=== PATIENT | male | born 2000 | race Caucasian/White ===

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

== ENCOUNTER → 2023-08-27 12:06 | Outpatient (CLI) | payer MEDICAID, SELFPAY ==
--- NOTE | 2023-08-27 12:08 | CT_ITS ---
WS: [id number] CT HEAD TECHNIQUE: Noncontrast CT of the head obtained from the skullbase to the vertex. CLINICAL INFORMATION: EVALUATE SHUNT FUNCTION COMPARISON: None. DLP: 995.[address] scans at [facility] use at least one of these dose optimization techniques: automated e xposure control; mA and/or kV adjustment per patient size (includes targeted exams where dose is matc hed to clinical indication); or iterative reconstruction. FINDINGS: No prior comparisons. No evidence intracranial hemorrhage or mass effect. Large chronic RIGHT parietal craniectomy defect a t the vertex. RIGHT parietal occipital shunt catheter with tip in the anterior horn RIGHT lateral ramo tricle along the septum pellucidum. RIGHT ventricle is decompressed. Mild dilatation of the LEFT late ral ventricle. Chronic encephalomalacia with dystrophic calcifications in the RIGHT parietal lobe presumably in a r esection cavity. Increased attenuation in the resection cavity likely laminar necrosis and mineraliza tion. Recommend correlation with surgical history. No evidence of significant hydrocephalus or transependym al edema. Temporal horns are decompressed. Normal fourth ventricle. Third ventricle is decompressed. Tiny low-attenuation benign extra-axial fluid collections likely tiny subdural hygromas. No mass effe ct. Mild mucosal thickening in the ethmoid air cells and paranasal sinuses. Sphenoid sinuses are well aer ated and mastoid air cells are well aerated. Normal posterior nasopharynx. Normal posterior fossa. CT/CT head wo con* [id number] IMPRESSION: 1. Chronic RIGHT parietal craniectomy with underlying encephalomalacia and dys trophic calcifications and mineralization. Recommend correlation with prior res ection in this area. 2. RIGHT parietal shunt catheter with tip along the septum pellucidum in the R IGHT frontal horn. 3. RIGHT ventricle is decompressed. Mild dilatation of the LEFT lateral ventri dionte when compared to the RIGHT but no evidence of transependymal edema or signi ficant hydrocephalus. Temporal horns are decompressed. Third ventricle and four th ventricle are decompressed. 4. Tiny symmetric low-attenuation subdural collections likely subdural hygroma s incidental. 5. No other acute findings.
== END | disposition home or self-care (01) ==
LOC: RAD 12:05
PROVIDERS: Family Provider Family Medicine; PCP Nurse Practitioner Family; Visit Provider Internal Medicine
DX: S06.6X9D Traumatic subarachnoid hemorrhage with loss of consciousness of unspecified duration, subsequent encounter (principal); G93.89 Other specified disorders of brain; Z98.2 Presence of cerebrospinal fluid drainage device
CPT/HCPCS: 70450

== ENCOUNTER 2023-09-04 10:04 | Outpatient (CLI) | payer MEDICAID, SELFPAY ==
--- NOTE | 2023-09-04 10:09 | FL_ITS ---
WS: [id number] Exam: FL barium swallow modifd [id number] Date/Time of Exam: 09/04/2023 10:20 AM Reason For Exam: Other dysphagia Fluoroscopy time: 2min [id number] minutes # of spot films: 0 Modified barium swallow study was performed in conjunction with the speech therapy service. [place] consistency and pudding consistency barium foodstuffs were administered. Oral pharyngeal phase of swallowing was grossly normal. No aspiration or penetration was observed on this limited exam. FL/FL barium swallow modifd [id number] IMPRESSION: 1. No aspiration or penetration identified. Limited exam. A separate report and recommendations will follow from the speech therapy servi ce.
== END 2023-09-04 10:05 | disposition home or self-care (01) ==
LOC: RAD 10:04
PROVIDERS: Family Provider Family Medicine; PCP Nurse Practitioner Family; Visit Provider Internal Medicine
DX: R13.12 Dysphagia, oropharyngeal phase (principal)
CPT/HCPCS: 74230; 92611

== ENCOUNTER 2023-09-11 06:00 | Outpatient (RCR) | payer MEDICAID, SELFPAY | END 2023-10-08 23:59 | disposition home or self-care (01) | LOC: SST 06:00 | PROVIDERS: Visit Provider Internal Medicine | DX: F80.2 Mixed receptive-expressive language disorder (principal) | CPT/HCPCS: 92523 ==

== ENCOUNTER 2024-10-09 07:41 | Inpatient (IN) | payer MEDICAID, SELFPAY ==
--- OUTSIDE RECORDS SUMMARY | 2024-09-24 10:00 | XMS_ITS ---
Author Organization [facility] Address [address] [place] [address] Care Team Providers Care Edi Programmer Name Role Phone Landry Cobian Primary Care Provider [phone] REASON FOR VISIT halfway visit at [place], [place] Encounters Encounter Location Date Provider Diagnosis [facility] [address] [place] [address] 09/24/2024 Landry Cobian Assessments Encounter Date Diagnosis (ICD Code) Assessment Notes Treatment Notes Treatment Clinical Notes Section Notes 09/24/2024 Other Medications wer e reviewed. I will continue without changes. Nursing staff is to contact me with any symptoms arising. Orders signed and documented with nursing staff. Vitals taken and recorded at [facility]. Plan Of Treatment Treatment Notes Assessment Notes Other Medications were rev iewed. I will continue without changes. Nursing staff is to contact me with any symptoms arising. Orders signed and documented with nursing staff. Vitals taken and recorded at [facility]. Next Appt Details Follow Up: 4 Weeks, Reason: History and Physical Notes * HPI (History of Present Illness) Category Sub-Category Detail Notes Category Not es : The patient is seen in the senior care today for follow-up. Staff reports no new complaints. The review of systems and exam are unchanged from previous. Patient denies pain and is comfortable. Examination Category Sub-Category Detail Notes Category Not es General Examination GENERAL APPEARANCE: in no ac nondalton distress. Vital signs as documented. NECK/THYROID: no JVD HEART: notable for regular rhythym, normal sounds and absence of murmurs, rubs or gallops. LUNGS: Lungs clear ABDOMEN: unremarkable, no org anomegaly , no masses, or abdominal aortic enlargement. SKIN: warm and dry, withou t overt rashes. Progress Notes * KENDELL JACKSONOB:2000 ( 23 yo M)Acc No.[id number]:09/24/2024 Patient: HARJEET CROWLEY Provider: Erik Cobian MD :2000 A ge:23 Y S ex:Male Date:09/24/2024 Address:[address] [place] [id number] Subjective: * Chief Complaints: * N ursing home visit at [place], [place] * HPI: * :: The patient is seen in the senior care today for follow-up. Staff reports no new complaints. The review of systems and exam are unchanged from previous. Patient denies pain and is comfortable. Objective: * Examination: G eneral Examination: GENERAL APPEARANCE: i n no acute distress. Vital signs as documented.. NECK/THYROID: n o JVD. SKIN: w arm and dry, without overt rashes.. HEART: n otable for regular rhythym, normal sounds and absence of murmurs, rubs or gallops. LUNGS: L ungs clear. ABDOMEN: u nremarkable, no organomegaly , no masses, or abdominal aortic enlargement.. Plan: * Treatment: * Procedure Codes: 9 9309 [facility] CARE SUBSEQ * Follow Up: 4 Weeks Billing Information: * Procedure Codes: 27368 [facility] CARE SUBSEQ. * Electronic signature of Marc Cobian MD on 10/09/2024 at 07:46 AM CDT Sign off status: Pending * Provider: Erik Cobian MD Date: 09/24/2024 Generated for Tommy raymond/Karey/Palmeritting on: 10/09/2024 07:46 AM CDT
[2024-10-09 07:44] VITALS: BP 113/70; PULSE 67; RESP 18; TEMP 36.9; O2SAT 99; BMI 23.0
--- NOTE | 2024-10-09 07:47 | CTR_ITS ---
PROCEDURE INFORMATION: Exam: CT Abdomen And Pelvis With Contrast Exam date and time: 10/09/2024 8:18 AM Age: 23 years old Clinical indication: Vomiting; Prior surgery; Surgery date: 6+ months; Surgery type: Peg tube TECHNIQUE: Imaging protocol: Computed tomography of the abdomen and pelvis with contrast. Radiation optimization: All CT scans at this facility use at least one of these dose optimization techniques: automated exposure control; mA and/or kV adjustment per patient size (includes targeted exams where dose is matched to clinical indication); or iterative reconstruction. Contrast material: OMNI 350; Contrast volume: 100 ml; Contrast route: INTRAVENOUS (IV); COMPARISON: No relevant prior studies available. RADIATION DOSE METRICS: Total DLP (mGy-cm): 689.63 FINDINGS: Tubes, catheters and devices: There is a G-tube with its tip within the proximal duodenal. There is a ventriculoperitoneal shunt with its tip within the right upper quadrant. Lungs: Lung bases are clear as visualized. Liver: Normal. No mass. Gallbladder and biliary ducts: Normal. No calcified stones. No ductal dilation. Pancreas: Normal. No ductal dilation. Spleen: The spleen is slightly enlarged measuring 14.2 cm in maximal dimension. Adrenal glands: Normal. No mass. Kidneys and ureters: There are nonobstructing renal calculi on the left. No hydronephrosis is noted. The kidneys are otherwise normal. Stomach and bowel: Large amount of stool is seen within the rectum. There are air-fluid levels involving nondilated loops of colon as well as non and minimally distended loops of small bowel. No definite transition point is identified. There is minimal if any wall thickening involving the small bowel and colon. No pneumatosis is appreciated. There may be mild wall thickening involving the antrum of the stomach and proximal duodenal. Appendix: No evidence of appendicitis. Intraperitoneal space: Unremarkable. No free air. No significant fluid collection. Vasculature: Unremarkable. No abdominal aortic aneurysm. Lymph nodes: Unremarkable. No enlarged lymph nodes. Urinary bladder: Unremarkable as visualized. Reproductive: Unremarkable as visualized. Bones/joints: Unremarkable. No acute fracture. Soft tissues: Unremarkable. CT/CT abdomen pelvis w con* [id number] IMPRESSION: 1. Peg tube with its tip within the duodenal. Recommend clinical correlation as to whether this is the appropriate position of the PEG tube. There does appear to be mild wall thickening involving the duodenal and antrum suggesting a degree of inflammation. The stomach does not appear to be dilated. 2. Air-fluid levels involving nondilated loops of large bowel as well as nondilated and minimally distended loops of small bowel. This is a nonspecific finding but could be related to an ileus or enterocolitis. A bowel obstruction is felt to be less likely given lack of transition point as well as involvement of both large and small bowel loops. 3. Fecal impaction.
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
[2024-10-09] MEDS: iohexol 300 mg/mL 100 mL Btl IV (08:26)
[2024-10-09] MEDS: ondansetron 2 mg/ML SDV 2 mL 4 MG IVP (08:33)
[2024-10-09 08:35] LABS: Hematocrit 52.3 % (37-53); Hemoglobin 17.30 g/dL (11.27-16.99); Mean Corpuscular HGB Conc 33.1 g/dL (30-55); Mean Corpuscular Hemoglobin 30.1 pg (27-33); Mean Corpuscular Volume 91.1 fl (82-101); Nucleated Red Blood Cells % 0 %; Platelet Count 246 10^3/cmm (157-399); Red Blood Count 5.74 10^6/uL (3.85-5.65); White Blood Count 12.23 10^3/uL (3.29-11.43)
--- NOTE | 2024-10-09 08:47 | XRR_ITS ---
PROCEDURE INFORMATION: Exam: XR Abdomen Exam date and time: 10/09/2024 8:56 AM Age: 23 years old Clinical indication: Device placement; Gi device; Gastrostomy, other; Prior surgery; Surgery date: 6+ months; Surgery type: Gtube; Possible tube injury; Peg tube confirmation; 20cc gastrograffin/saline mixture injected through existing peg-no resistance TECHNIQUE: Imaging protocol: Radiologic exam of the abdomen. Views: Frontal supine view of the abdomen. 1 View. COMPARISON: CT abdomen pelvis w con* [id number] 10/09/2024 8:18 AM FINDINGS: Tubes, catheters and devices: There is a ventriculoperitoneal shunt catheter with its tip overlying the right upper quadrant. G-tube is present with its tip overlying the right upper abdomen. Gastrointestinal tract: There is oral contrast presumably within the proximal duodenal. No dilated loops of bowel are appreciated. Organs: There is IV contrast within the renal collecting systems and ureters. Bones/joints: Unremarkable. XR/XR KUB [id number] IMPRESSION: 1. Oral contrast within what is presumably the proximal duodenal.
[2024-10-09 08:50] LABS: Alanine Aminotransferase 384 U/L (0-41); Albumin Level 4.9 g/dL (3.5-5.2); Alkaline Phosphatase 364 U/L (40-130); Anion Gap 16.8 (5-19); Aspartate Amino Transferase 83 U/L (0-40); Blood Urea Nitrogen 14 mg/dL (6-20); Calcium 11.2 mg/dL (8.5-10.5); Carbon Dioxide 31 mmol/L (22-29); Chloride 98 mmol/L (98-107); Creatinine Clr Calc Pharmacy 140.9525; Globulin 4.0 g/dL (1.3-4.6); Glucose 109 mg/dL (65-115); Osmolality Calculated 293 mOsm/kg (285-295); Potassium 4.8 mmol/L (3.5-5.1); Sodium 141 mmol/L (136-145); Total Protein 8.9 g/dL (6.6-8.7)
[2024-10-09 09:06] LABS: Lipase 1025 U/L (13-60)
[2024-10-09 09:30] LABS: Triglycerides 117 mg/dL (0-150)
[2024-10-09 10:02] VITALS: BP 125/85; PULSE 88; O2SAT 93
[2024-10-09 10:18] VITALS: BMI 19.8
[2024-10-09 12:02] VITALS: BP 104/69; PULSE 76; RESP 15; TEMP 35.8; O2SAT 98
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
[2024-10-09 15:40] VITALS: BP 114/64; PULSE 79; RESP 17; TEMP 36.9; O2SAT 96
[2024-10-09 20:00] VITALS: BP 119/65; PULSE 74; RESP 16; TEMP 36.8; O2SAT 95
[2024-10-10] VITALS (8 sets, daily range): BP systolic 95–113; BP diastolic 60–73; PULSE 57–97; RESP 15–19; TEMP 36.4–37; O2SAT 94–97
[2024-10-10 02:41] LABS: Alanine Aminotransferase 216 U/L (0-41); Albumin Level 3.9 g/dL (3.5-5.2); Alkaline Phosphatase 230 U/L (40-130); Anion Gap 12.9 (5-19); Aspartate Amino Transferase 38 U/L (0-40); Blood Urea Nitrogen 13 mg/dL (6-20); Calcium 9.3 mg/dL (8.5-10.5); Carbon Dioxide 27 mmol/L (22-29); Chloride 104 mmol/L (98-107); Creatinine Clr Calc Pharmacy 180.8472; Globulin 2.5 g/dL (1.3-4.6); Glucose 95 mg/dL (65-115); Osmolality Calculated 290 mOsm/kg (285-295); Potassium 3.9 mmol/L (3.5-5.1); Sodium 140 mmol/L (136-145); Total Protein 6.4 g/dL (6.6-8.7)
[2024-10-10] MEDS: saliva stimulant spray 30 mL Btl 1 SPRAY MUCOUS MEM (09:35)
[2024-10-10] MEDS: polyethylene glycol 3350 Pkt 17 gm PO (09:35)
--- NOTE | 2024-10-10 10:42 | PC.NURSE ---
Addendum entered by Maile Marsh LPN 10/10/24 11:02: The mother stated that since moving the patient from the half-way to his [place] housing, they have not received his order of Osmolite 1.5cal and was told they could use Ensure Plus in its place until the order could arrive. The patient's mother stated that the patient had previously been on Jevity 1.2cal but was changed to the Osmolite 1.5cal due to less fiber and the patient was having too many bowel movements but didn't seem to be having enough once he was changed to the new formula at home. Original Note: This nurse spoke with Dr. Hammonds who stated the patient could start back with tube feedings at half his normal rate. This nurse spoke with the patient's mother who stated that the patient normally receives Osmolite 1.5cal bolus feedings of 12oz at 0800, 8oz at 1200, 8oz at 1600, and 12oz at 2000 with 200mL free water flushes with each bolus. This nurse notified Dr. Hammonds and stated to start patient back with half the amounts listed.
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
[2024-10-10] MEDS: sennosides-docusate Tablet 1 TAB PEG-TUBE (17:32)
[2024-10-10] MEDS: polyethylene glycol 3350 Pkt 17 gm PEG-TUBE (17:32)
[2024-10-11] VITALS (7 sets, daily range): BP systolic 98–120; BP diastolic 61–80; PULSE 59–79; RESP 14–18; TEMP 36.4–36.8; O2SAT 96–97
[2024-10-11 04:45] LABS: Hematocrit 37.1 % (37-53); Hemoglobin 12.50 g/dL (11.27-16.99); Mean Corpuscular HGB Conc 33.7 g/dL (30-55); Mean Corpuscular Hemoglobin 30.6 pg (27-33); Mean Corpuscular Volume 90.7 fl (82-101); Nucleated Red Blood Cells % 0 %; Platelet Count 172 10^3/cmm (157-399); Red Blood Count 4.09 10^6/uL (3.85-5.65); White Blood Count 6.41 10^3/uL (3.29-11.43)
[2024-10-11 05:02] LABS: Anion Gap 12.5 (5-19); Blood Urea Nitrogen 6 mg/dL (6-20); Calcium 9.0 mg/dL (8.5-10.5); Carbon Dioxide 26 mmol/L (22-29); Chloride 105 mmol/L (98-107); Creatinine Clr Calc Pharmacy 184.7974; Glucose 98 mg/dL (65-115); Osmolality Calculated 288 mOsm/kg (285-295); Potassium 3.5 mmol/L (3.5-5.1); Sodium 140 mmol/L (136-145)
[2024-10-11] MEDS: polyethylene glycol 3350 Pkt 17 gm PEG-TUBE (08:24)
[2024-10-11] MEDS: sennosides-docusate Tablet 1 TAB PEG-TUBE (08:24)
--- NOTE | 2024-10-11 12:23 | PC.NUTR ---
Consult received for PEG tube feeding recommendations. Per nursing notes, Pt's regimen is as follows below, with 200mls FWF with each bolus: 8am: 12oz or 360mls (1.5 cartons) Noon: 8oz or 240mls (1 carton) 4pm: 8oz 8pm: 12oz Discussed formula choices with Pt's Mom. Because of impaction, would recommend Jevity 1.5, but also of note Pt had too many BM's with Jevity 1.5 and family is awaiting delivery of Osmolite 1.5. Also discussed doing a syringe of FWF (60mls) between feedings if Pt showing signs of dehydration. Would need to monitor for residual irrigant or feeding. Both Osmolite 1.5 and Jevity 1.5 x 5 cartons/day would provide 76 grams protein or 97% Pt's estimated protein needs, 1775kcals or 98% Pt's estimated calorie needs, and 900mls+800FWF or 94% Pt's estimated fluid needs.
--- NOTE | 2024-10-11 13:10 | XRR_ITS ---
PROCEDURE INFORMATION: Exam: XR Abdomen Exam date and time: 10/11/2024 1:55 PM Age: 23 years old Clinical indication: Device placement; Gi device; Nasogastric tube; Prior surgery; Surgery date: 6+ months; Surgery type: Peg tube shunt; Pet tube placement verification with gastrografin injection; Additional info: Gastrograffin TECHNIQUE: Imaging protocol: Radiologic exam of the abdomen. Views: Frontal supine view of the abdomen. 1 View. COMPARISON: CR (ABDOMEN, ) 10/09/2024 8:56 AM FINDINGS: Tubes, catheters and devices: A peritoneal catheter overlies the right abdomen. A gastrostomy tube containing contrast overlies the left mid abdomen. Gastrointestinal tract: Contrast opacifies the gastric fundus. No evidence for extraluminal contrast in the abdomen. The colon is moderately distended with gas. No evidence for small bowel dilatation. Bones/joints: The osseous structures are unremarkable. XR/XR KUB portable [id number] IMPRESSION: Oral contrast opacifies the stomach, presumably injected via the PEG tube.
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
--- NOTE | 2024-10-11 14:37 | PC.NURSE ---
Patient's mother expressed concern that patient's feeding tube was not in the correct location due to the fact that it was extremely short externally. Fed patient this morning 240mL of ensure plus and administered 200 total H2O. Tube was patent, but was short to the point there were no measurements externally. Contacted the physician Dr Sanchez and received verbal order to consult general surgery. Essie was called and explained the situation and gave verbal orders to do a gastrografin study. Essie came to bedside as radiology was in the room fixing to administer gastrografin and held the x-ray until he deflated the balloon and pulled tube out some then gave gastrografin and imaged. Awaiting radiology report to confirm proper placement and then patient can discharge.
--- NOTE | 2024-10-11 14:37 | PM.MISC ---
Miscellaneous Note Note: Deflated balloon. Pulled gastrostomy tube about 7 cm. Able to aspirate gastric contents. Inflated balloon with 10 cc sterile water. Injected Gastrografin through the tube and KUB showed contrast in stomach. Gastrostomy tube was 3.5 centimeters at skin level. Secured with bumper. Full consult note to follow. Okay to use tube.
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
== END 2024-10-11 17:40 | disposition home or self-care (01) | DRG 438 ==
LOC: ER 09:33 → MEDSURG 09:40
PROVIDERS: Admitting Provider Internal Medicine; Emergency Provider Emergency Medicine; PCP Internal Medicine; Visit Provider Student in an Organized Health Care Education/Training Program
DX: K85.90 Acute pancreatitis without necrosis or infection, unspecified (principal); G82.50 Quadriplegia, unspecified; T85.528A Displacement of other gastrointestinal prosthetic devices, implants and grafts, initial encounter; Z74.01 Bed confinement status; L89.152 Pressure ulcer of sacral region, stage 2; Y73.8 Miscellaneous gastroenterology and urology devices associated with adverse incidents, not elsewhere classified; I69.065 Other paralytic syndrome following nontraumatic subarachnoid hemorrhage, bilateral; K56.41 Fecal impaction; K21.9 Gastro-esophageal reflux disease without esophagitis; G47.419 Narcolepsy without cataplexy
CPT/HCPCS: 36415; 74018; 74177; 80048; 80053; 83690; 84478; 85025; 94640; 96372; 96374; 99285; J1650; J2405; J7030; J7613; J9999; Q9963

== ENCOUNTER 2024-12-20 09:41 | Emergency (ER) | payer MEDICAID, SELFPAY ==
[2024-12-20 09:49] VITALS: BP 115/62; PULSE 68; RESP 18; TEMP 36.6
--- NOTE | 2024-12-20 10:06 | XR_ITS ---
WS: [id number] XR shunt series REASON FOR EXAM: concern for shunt malfunction FINDINGS: Shunt tubing within the abdomen not completely evaluated. Need an AP view of the pelvis. The tubing visualized from the cranial vault to the right lower quadrant appears intact. The intracranial portion is consistent with position in the right lateral ventricle. XR/XR shunt series IMPRESSION: Visualized shunt tubing intact. Recommend AP view of the pelvis for complete ev aluation.
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
--- NOTE | 2024-12-20 11:00 | XR_ITS ---
WS: [id number] XR pelvis 1-2V* [id number] REASON FOR EXAM: AP pelvis for shunt view FINDINGS: The distal portion of the shunt tubing lies within the left mid pelvis. The tubing is intact with no kink identified. XR/XR pelvis 1-2V* 91000 IMPRESSION: Distal shunt tubing intact as above.
--- NOTE | 2024-12-20 11:13 | PC.PHAR ---
[facility] keeps medication list [facility]
[2024-12-20 11:52] VITALS: BP 94/68; PULSE 59; RESP 16; O2SAT 99
[2024-12-20 12:14] VITALS: BP 99/67; PULSE 60; RESP 16; O2SAT 97
== END 2024-12-20 12:13 | disposition home or self-care (01) ==
PROVIDERS: Emergency Provider Physician Assistant; PCP Family Medicine
DX: Z98.2 Presence of cerebrospinal fluid drainage device (principal)
CPT/HCPCS: 70250; 71046; 72040; 72170; 74019; 99284